=== PATIENT | female | born 1950 | race Caucasian/White ===

== ENCOUNTER 2020-08-11 10:23 | Outpatient (REF) | payer MEDICARE, SELFPAY ==
[2020-08-11 11:38] LABS: Hematocrit 38.4 % (37-47); Hemoglobin 12.1 g/dl (12.0-16.0); Mean Corpuscular HGB Conc 31.5 g/dl (31.0-35.0); Mean Corpuscular Hemoglobin 28.7 pg (27.0-33.0); Mean Platelet Volume 10.8 fL (9.4-12.3); Platelet Count 281 X10*3/uL (160-400); Red Blood Count 4.22 X10*6/uL (4.20-5.50); Red Cell Distribution Width 13.7 % (11.0-16.0); White Blood Count 6.5 X10*3/uL (4.8-10.8)
[2020-08-11 12:14] LABS: Alanine Aminotransferase 12 U/L (0-31); Albumin Level 4.8 g/dL (3.5-5.0); Alkaline Phosphatase 84 U/L (39-117); Anion Gap 16 (12-20); Aspartate Amino Transferase 22 U/L (5-31); Bilirubin Total 0.5 mg/dL (0.0-1.0); Blood Urea Nitrogen 14 mg/dL (9-16); Calcium 10.1 mg/dL (8.4-10.2); Carbon Dioxide 25 mmol/L (22-29); Chloride 105 mmol/L (96-108); Cholesterol 181 mg/dL; Estimated Glomerular Filt Rate > 60; Glucose Fasting 102 mg/dL (60-99); HDL Cholesterol 75 mg/dL; LDL Cholesterol Calculated 89 mg/dl; Potassium 4.5 mmol/L (3.3-5.1); Sodium 141 mmol/L (135-145); Total Protein 7.7 g/dL (6.5-8.0); Triglycerides 85 mg/dL
[2020-08-11 12:16] LABS: Thyroid Stimulating Hormone 0.75 uIU/mL (0.32-4.0)
[2020-08-11 12:21] LABS: Glucose Urine UA NEG (NEG); Leukocyte Esterase Urine TRACE (NEG); Nitrite Urine NEG (NEG); PH 5.5 (5.0-8.0); Urine Blood NEG (NEG); Urine Ketones NEG (NEG); Urine Protein NEG (NEG-TRACE)
[2020-08-11 12:26] LABS: Appearance Urine CLEAR; Color Urine YELLOW
[2020-08-11 12:44] LABS: Mucus Urine 2+ /LPF; RBC Urine 0-2 /HPF (0); Renal Epithelial Cells Urine 1+ /LPF; Squamous Epithelial Cell Urine 2+ /LPF; WBC Urine 0-2 /HPF (0-4)
== END 2020-08-11 10:24 | disposition home or self-care (01) ==
LOC: HO.HMGCLDS 10:23
PROVIDERS: PCP Internal Medicine; Visit Provider Internal Medicine
DX: E78.5 Hyperlipidemia, unspecified (principal); I10 Essential (primary) hypertension; M06.9 Rheumatoid arthritis, unspecified
CPT/HCPCS: 36415; 80053; 80061; 81001; 81003; 84443; 85027

== ENCOUNTER 2021-08-17 13:01 | Outpatient (REF) | payer MEDICARE, SELFPAY ==
[2021-08-17 14:03] LABS: Hematocrit 35.3 % (37.0-47.0); Hemoglobin 11.3 g/dl (12.0-16.0); Mean Corpuscular Hemoglobin 30.7 pg (27.0-33.0); Mean Corpuscular Volume 95.9 fL (80.0-98.0); Mean Platelet Volume 10.8 fL (9.4-12.3); Platelet Count 223 X10*3/uL (160-400); Red Blood Count 3.68 X10*6/uL (4.20-5.50); Red Cell Distribution Width 14.8 % (11.0-16.0); White Blood Count 4.6 X10*3/uL (4.8-10.8)
[2021-08-17 14:19] LABS: Alanine Aminotransferase 22 U/L (0-31); Albumin Level 4.6 g/dL (3.5-5.0); Alkaline Phosphatase 74 U/L (39-117); Anion Gap 14 (12-20); Aspartate Amino Transferase 24 U/L (5-31); Bilirubin Total 0.6 mg/dL (0.0-1.0); Blood Urea Nitrogen 16 mg/dL (9-16); Calcium 10.2 mg/dL (8.4-10.2); Carbon Dioxide 24 mmol/L (22-29); Chloride 107 mmol/L (96-108); Cholesterol 172 mg/dL; Estimated Glomerular Filt Rate > 60; Glucose Fasting 96 mg/dL (60-99); HDL Cholesterol 78 mg/dL; LDL Cholesterol Calculated 83 mg/dl; Potassium 4.2 mmol/L (3.3-5.1); Sodium 141 mmol/L (135-145); Total Protein 7.5 g/dL (6.5-8.0); Triglycerides 58 mg/dL
[2021-08-17 14:33] LABS: Vitamin D 25-OH Total 43.6 ng/mL (>30)
[2021-08-17 15:23] LABS: Free T4 (Free Thyroxine) 0.98 ng/dL (0.71-1.85)
== END 2021-08-17 13:02 | disposition home or self-care (01) ==
LOC: HO.HMGCLDS 13:01
PROVIDERS: Visit Provider Internal Medicine
DX: E55.9 Vitamin D deficiency, unspecified (principal); E78.5 Hyperlipidemia, unspecified; I10 Essential (primary) hypertension; M06.9 Rheumatoid arthritis, unspecified
CPT/HCPCS: 36415; 80053; 80061; 82306; 84439; 84443; 85027

== ENCOUNTER 2021-08-21 12:34 | Outpatient (REF) | payer MEDICARE, SELFPAY ==
[2021-08-21 14:23] LABS: Iron 112 mcg/dL (30-160); Percent Iron Saturation 36 % (15-50); Total Iron Binding Capacity 308 mcg/dL (228-428); Unsaturated Iron Binding 196 ug/dL
[2021-08-21 14:46] LABS: Vitamin D 25-OH Total 42.1 ng/mL (>30)
[2021-08-21 14:56] LABS: Folate > 20.0 ng/mL (> or = 4.0); Vitamin B12 368 pg/mL (200-900)
== END 2021-08-21 12:35 | disposition home or self-care (01) ==
LOC: HO.HMGCLDS 12:34
PROVIDERS: PCP Internal Medicine; Visit Provider Internal Medicine
DX: E55.9 Vitamin D deficiency, unspecified (principal); I10 Essential (primary) hypertension; D64.9 Anemia, unspecified
CPT/HCPCS: 36415; 82306; 82607; 82746; 83540

== ENCOUNTER 2022-10-05 08:20 | Outpatient (REF) | payer MEDICARE, SELFPAY ==
--- NOTE | ~2022-10-05 | US_ITS ---
EXAMINATION: US ABDOMEN COMPLETE CLINICAL INFORMATION: Right upper quadrant abdominal tenderness. COMPARISON: None available. TECHNIQUE: Real-time imaging of the abdominal viscera. FINDINGS: PANCREAS: Normal. ABDOMINAL AORTA: Mild atherosclerotic changes distal abdominal aorta. Mid abdominal aorta is unremarkable. The proximal abdominal aorta is not visualized. INFERIOR VENA CAVA: Visualized portions are normal. LIVER: The liver is normal in size. The liver contour is normal. There is diffuse hepatic increased echogenicity. No focal hepatic lesion. There is no intrahepatic biliary duct dilatation seen. GALLBLADDER: Normal. The gallbladder is physiologically distended without evidence of stones, sludge, polyps, wall thickening or pericholecystic fluid. COMMON BILE DUCT: Normal in caliber measuring 0.2 cm in diameter. RIGHT KIDNEY: There is an anechoic left parapelvic cyst measuring 2.0 x 1.4 x 1.6 cm. No hydronephrosis or renal calculi. The kidney measures 11.0 cm in maximum dimension. LEFT KIDNEY: There are anechoic parapelvic cysts with the largest upper pole cyst measuring 1.9 x 1.4 x 2.4 cm. No hydronephrosis or renal calculi. The kidney measures 10.5 cm in maximum dimension. SPLEEN: Normal. The spleen measures 8.9 cm in maximum dimension. FREE FLUID: None. US/US abdomen complete IMPRESSION: 1. Bilateral parapelvic renal cysts. No echogenic stones or hydronephrosis. 2. Rest of the abdominal ultrasound is unremarkable. 3. Diffuse hepatic echogenicity.
[2022-10-05 11:25] LABS: MANUAL DIFF FLAG NO
[2022-10-05 11:44] LABS: Basophils Percent Auto 0.5 % (0-2); Eosinophils Absolute Auto 0.2 X10*3/uL (0.0-0.4); Eosinophils Percent Auto 4.9 % (0-4); Hematocrit 36.3 % (37.0-47.0); Hemoglobin 11.4 g/dl (12.0-16.0); Imm Gran Abs Auto 0.02 X10*3/uL (0.00-0.03); Imm Gran Pct Auto 0.5 % (0.0-0.4); Lymphocytes Absolute Auto 0.5 X10*3/uL (1.2-4.9); Lymphocytes Percent Auto 14.7 % (20-40); Mean Corpuscular HGB Conc 31.4 g/dl (31.0-35.0); Mean Corpuscular Hemoglobin 30.8 pg (27.0-33.0); Mean Corpuscular Volume 98.1 fL (80.0-98.0); Mean Platelet Volume 11.2 fL (9.4-12.3); Monocytes Absolute Auto 0.5 X10*3/uL (0.1-1.2); Monocytes Percent Auto 14.4 % (2-11); Neutrophils Absolute Auto 2.4 x10*3/uL (2.0-8.3); Platelet Count 199 X10*3/uL (160-400); Red Cell Distribution Width 15.1 % (11.0-16.0); White Blood Count 3.7 X10*3/uL (4.8-10.8)
[2022-10-05 12:05] LABS: Alanine Aminotransferase 28 U/L (0-31); Albumin Level 4.6 g/dL (3.5-5.0); Alkaline Phosphatase 64 U/L (39-117); Anion Gap 13 (12-20); Aspartate Amino Transferase 26 U/L (5-31); Bilirubin Total 0.8 mg/dL (0.0-1.0); Blood Urea Nitrogen 17 mg/dL (9-16); Calcium 9.9 mg/dL (8.4-10.2); Carbon Dioxide 27 mmol/L (22-29); Chloride 108 mmol/L (96-108); Cholesterol 197 mg/dL; Estimated Glomerular Filt Rate > 60; Glucose Fasting 92 mg/dL (60-99); HDL Cholesterol 80 mg/dL; LDL Cholesterol Calculated 102 mg/dl; Sodium 144 mmol/L (135-145); Total Protein 7.1 g/dL (6.5-8.0); Triglycerides 77 mg/dL
[2022-10-05 12:26] LABS: Vitamin D 25-OH Total 45.9 ng/mL (>30)
== END 2022-10-05 08:21 | disposition home or self-care (01) ==
LOC: HO.HMGCX 08:20
PROVIDERS: PCP Internal Medicine; Visit Provider Internal Medicine
DX: R10.811 Right upper quadrant abdominal tenderness (principal); E78.5 Hyperlipidemia, unspecified; E55.9 Vitamin D deficiency, unspecified; I10 Essential (primary) hypertension
CPT/HCPCS: 36415; 76700; 80053; 80061; 82306; 85025

== ENCOUNTER 2023-04-18 14:12 | Outpatient (AMB) | payer MEDICARE, SELFPAY ==
[2023-04-18 14:13] VITALS: BP 140/80; PULSE 92; O2SAT 94; BMI 26.1
--- NOTE | 2023-04-18 14:13 | MHC.PC.OV ---
Vital Signs 04/18/23 14:13 Height 5 ft 1 in Weight 138 lb 6 oz BMI 26.1 BP 140/80 H Blood Pressure Location Rt brachial Position Sitting Pulse 92 Pulse Source Pulse Oximeter Pulse Oximetry (%) 94 Oxygen Delivery Method Room Air Intake Visit Reasons: 6 month follow up HTN Intake Note: pt is here for 6 month f/u htn [employer] (Ex ) Required: No Accompanied by: Self / Same As Patient Allergies No Known Allergies Allergy (Verified 04/18/23 14:14) Medication List - Last Reconciled 04/18/23 by Sandra Phillips MD amlodipine 5 mg PO DAILY calcium carbonate mg PO cholecalciferol (vitamin D3) 25 mcg PO DAILY folic acid 1 mg PO DAILY leflunomide 20 mg PO DAILY methotrexate sodium mg PO metoprolol succinate ER 37.5 mg (1.5 x 25 mg) PO DAILY pravastatin 10 mg PO DAILY tofacitinib 5 mg PO BID Tobacco use date assessed: 04/18/23 Fall risk assessment: No Falls in past year Last assessed Fall Risk: 04/18/23 Dental Screening Dental Screen Date: 04/18/23 Did you have a dental visit in the last 12 months?: Yes Did you have a dental problem in the last 6 months where you did not have access to dental care?: No Was dental information given to patient?: Patient has dentist HPI 6 month follow up HTN HPI Details Pt presents for f/u of HTN and hyperlipid, stable on meds. PFSH Medical History Anemia Cataract Vitamin D deficiency History of mammogram Hyperlipidemia Rheumatoid arthritis HTN (hypertension) Surgical History H/O colonoscopy Social History Housing: House Patient Tobacco Use Status: Never used Tobacco e-Cigarette/Vaping Use: Never Used Current occupational status: retired Cognitive needs: No Hearing needs: No Vision needs: Yes Questionnaire PHQ-9 Over the last 2 weeks, how often have you been bothered by any of the following problems? 1. Little interest or pleasure in doing things: not at all 2. Feeling down, depressed, or hopeless: not at all 3. Trouble falling or staying asleep, or sleeping too much: not at all 4. Feeling tired or having little energy: not at all 5. Poor appetite or overeating: not at all 6. Feeling bad about yourself - or that you are a failure or have let yourself or your family down: not at all 7. Trouble concentrating on things, such as reading the newspaper or watching television: not at all 8. Moving or speaking so slowly that other people could have noticed. Or the opposite - being so fidgety or restless that you have been moving around a lot more than usual: not at all 9. Thoughts that you would be better off or of hurting yourself in some way: not at all Total score: 0 Depression Screening Interpretation: Negative Depression Screening Done: Yes 84183 - PHQ-9 Billing: Yes Source: Developed by Drs. Zhang Morris, Savanna White, Pito Mo and colleagues, with an educational facundo from [employer]. Thrive Questionnaire Date Thrive assessed: 04/18/23 I am a: Patient What is your living situation today?: I have a steady place to live Within the past 12 months, did the food you bought not last and you didn't have the money to get more?: Never true Within the past 12 months, did you worry whether your food would run out before you got money to buy more?: Never true Do you have trouble paying for medicines?: No Do you have trouble getting transportation to medical appointments?: No Do you have trouble paying your heating and electricity bill?: No Do you have trouble taking care of your child, family member or friend?: No Do you have trouble with day-to-day activities such as bathing, preparing meals, shopping, managing finances, etc.?: No Are you currently unemployed and looking for a job?: No Are you interested in more education?: No Please select the resources that you would like help with: None Currently or been in a relationship where the following occur: no concerns reported RNOALD-7 AMB Questionnaire RONALD-7 Date RONALD - 7 assessed: 04/18/23 Source: Developed by Drs. Zhang Morris, Savanna White, Pito Mo and colleagues, with an educational facundo from [employer]. RONALD-7 Assessment Billing RONALD-7 Assessment Tool: pt declined-do not bill Review of Systems Const All systems reviewed & are unremarkable except as noted in HPI and below Reports no additional complaints Eyes Reports no additional complaints ENT Reports no additional complaints Card Reports no additional complaints Resp Reports no additional complaints GI Reports no additional complaints Reports no additional complaints Physical exam (Primary Care) Vital Signs: Last Vital Signs Pulse 92 04/18/23 14:13 BP 150/94 H 04/18/23 14:13 Pulse Ox 94 04/18/23 14:13 Oxygen Delivery Method Room Air 04/18/23 14:13 BMI result Body Mass Index 26.1 Tobacco/Smoking Status: Tobacco use Status Tobacco use date assessed 04/18/23 04/18/23 14:14 Patient Tobacco Use Status Never used Tobacco 04/18/23 14:14 e-Cigarette/Vaping Use Never Used 04/18/23 14:14 PHQ-9: PHQ-9 Score PHQ-9: Total score 0 04/18/23 14:28 Depression Screening Interpretation: Negative Thrive Assessment: Date of Thrive Assessment Date Thrive assessed 04/18/23 04/18/23 14:20 Currently or been in a relationship where the following occur: no concerns reported Const General: no acute distress Eyes General: appearance normal, both eyes and all related structures Resp Effort & Inspection: normal respiratory effort Auscultation: clear to auscultation bilaterally Cardio Rhythm: regular rhythm Heart sounds: S1 normal heart sound present and S2 normal heart sound present GI Inspection: Yes normal to inspection Palpation (GI): Soft to palpation Assessment and Plan Assessment & Plan (1) HTN (hypertension): Code(s): I10 - Essential (primary) hypertension Plan: increase Metoprolol to 37.5 and cont Amlodipine, f/u 2 month for BP (2) Rheumatoid arthritis: Comment: f/u with fuel cell 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
== END 2023-04-18 14:58 | disposition home or self-care (01) ==
LOC: HO.HMGC 14:12
PROVIDERS: PCP Internal Medicine; Visit Provider Internal Medicine
DX: I10 Essential (primary) hypertension (principal); M06.9 Rheumatoid arthritis, unspecified
CPT/HCPCS: 99213

== ENCOUNTER 2023-06-21 12:03 | Outpatient (AMB) | payer MEDICARE, SELFPAY ==
[2023-06-21 12:32] VITALS: BP 138/76; PULSE 77; O2SAT 96; BMI 25.9
--- NOTE | 2023-06-21 12:32 | A.OFFPC_ITS ---
Vital Signs 06/21/23 12:32 Height 5 ft 1 in Weight 137 lb BMI 25.9 BP 138/76 Blood Pressure Location Lt brachial Position Sitting Pulse 77 Pulse Source Pulse Oximeter Pulse Oximetry (%) 96 Oxygen Delivery Method Room Air Intake Visit Reasons: 2 month fu Intake Note: Pt is here today for 2 months follow up visit on BP. Pt needs a refill on Vitamin D. Allergies No Known Allergies Allergy (Verified 06/21/23 12:36) Medication List - Last Reconciled 06/21/23 by Sandra Phillips MD amlodipine 5 mg PO DAILY calcium carbonate mg PO cholecalciferol (vitamin D3) 25 mcg PO DAILY folic acid 1 mg PO DAILY leflunomide 20 mg PO DAILY methotrexate sodium mg PO metoprolol succinate ER 50 mg PO DAILY pravastatin 10 mg PO DAILY tofacitinib 5 mg PO BID Tobacco use date assessed: 06/21/23 Fall risk assessment: No Falls in past year Last assessed Fall Risk: 06/21/23 Dental Screening Dental Screen Date: 06/21/23 Did you have a dental visit in the last 12 months?: No Did you have a dental problem in the last 6 months where you did not have access to dental care?: No Was dental information given to patient?: Patient declined HPI 2 month fu HPI Details Pt presents for f/u HTN and hyperlipid, stable on meds. Patient follows up with medical collections for RA PFSH Medical History Anemia Cataract Vitamin D deficiency History of mammogram Hyperlipidemia Rheumatoid arthritis HTN (hypertension) Surgical History H/O colonoscopy Family History Mother Hypertension Heart attack Father No problems noted. Social History Housing: House Patient Tobacco Use Status: Never used Tobacco e-Cigarette/Vaping Use: Never Used Current occupational status: retired Cognitive needs: No Hearing needs: No Vision needs: Yes Questionnaire PHQ-9 Over the last 2 weeks, how often have you been bothered by any of the following problems? 1. Little interest or pleasure in doing things: not at all 2. Feeling down, depressed, or hopeless: not at all 3. Trouble falling or staying asleep, or sleeping too much: not at all 4. Feeling tired or having little energy: not at all 5. Poor appetite or overeating: not at all 6. Feeling bad about yourself - or that you are a failure or have let yourself or your family down: not at all 7. Trouble concentrating on things, such as reading the newspaper or watching television: several days 8. Moving or speaking so slowly that other people could have noticed. Or the opposite - being so fidgety or restless that you have been moving around a lot more than usual: not at all 9. Thoughts that you would be better off or of hurting yourself in some way: not at all Total score: 1 Depression Screening Interpretation: Negative Depression Screening Done: Yes 37690 - PHQ-9 Billing: Yes Source: Developed by Drs. Zhang Morris, Savanna White, Pito Mo and colleagues, with an educational facundo from [employer]. Thrive Questionnaire Date Thrive assessed: 06/21/23 I am a: Patient What is your living situation today?: I have a steady place to live Within the past 12 months, did the food you bought not last and you didn't have the money to get more?: Never true Within the past 12 months, did you worry whether your food would run out before you got money to buy more?: Never true Do you have trouble paying for medicines?: No Do you have trouble getting transportation to medical appointments?: No Do you have trouble paying your heating and electricity bill?: No Do you have trouble taking care of your child, family member or friend?: No Do you have trouble with day-to-day activities such as bathing, preparing meals, shopping, managing finances, etc.?: No Are you currently unemployed and looking for a job?: No Are you interested in more education?: No Please select the resources that you would like help with: None Currently or been in a relationship where the following occur: no concerns reported THRIVE Score: 0 AUDIT C Alcohol Use Questionnaire (AUDIT-C) 1. How often do you have a drink containing alcohol?: Never 3. How often do you have six or more drinks on one occasion?: Never Total Score: 0 RONALD-7 AMB Questionnaire RONALD-7 Date RONALD - 7 assessed: 06/21/23 Feeling nervous, anxious, or on edge: 0 = Not at all Not being able to stop or control worryin = Not at all Worrying too much about different things: 0 = Not at all Trouble relaxin = Not at all Being so restless that it is hard to sit still: 0 = Not at all Becoming easily annoyed or irritable: 0 = Not at all Feeling afraid as if something awful might happen: 0 = Not at all Total RONALD-7 score (0-4 normal; 5-9 mild; 10-14 moderate; 15-21 severe): 0 Source: Developed by Drs. Zhang Morris, Savanna White, Pito Mo and colleagues, with an educational facundo from [employer]. Review of Systems Const All systems reviewed & are unremarkable except as noted in HPI and below Reports no additional complaints Eyes Reports no additional complaints ENT Reports no additional complaints Card Reports no additional complaints Resp Reports no additional complaints GI Reports no additional complaints Physical exam (Primary Care) Vital Signs: Last Vital Signs Pulse 77 06/21/23 12:32 BP 138/76 06/21/23 12:32 Pulse Ox 96 06/21/23 12:32 Oxygen Delivery Method Room Air 06/21/23 12:32 BMI result Body Mass Index 25.9 Tobacco/Smoking Status: Tobacco use Status Tobacco use date assessed 06/21/23 06/21/23 12:41 Patient Tobacco Use Status Never used Tobacco 06/21/23 12:41 e-Cigarette/Vaping Use Never Used 06/21/23 12:32 PHQ-9: PHQ-9 Score PHQ-9: Total score 0 06/21/23 12:47 Depression Screening Interpretation: Negative Thrive Assessment: Date of Thrive Assessment Date Thrive assessed 06/21/23 06/21/23 12:47 Currently or been in a relationship where the following occur: no concerns reported Const General: no acute distress HENMT Head: Yes normal to inspection Ears: hearing grossly normal bilaterally Face and sinus: Yes normal facial exam Mouth: Normal oral and palatal mucosa present Teeth and gingiva: dentition normal Eyes General: appearance normal, both eyes and all related structures Neck Neck: Yes no lymphadenopathy and Yes supple Resp Effort & Inspection: normal respiratory effort Auscultation: clear to auscultation bilaterally Cardio Rhythm: regular rhythm Heart sounds: S1 normal heart sound present and S2 normal heart sound present GI Inspection: Yes normal to inspection Palpation (GI): Soft to palpation Percussion: Yes normal to percussion Auscultation: normal bowel sounds Assessment and Plan Assessment & Plan (1) Hyperlipidemia: Code(s): E78.5 - Hyperlipidemia, unspecified Plan: cont statin (2) Vitamin D deficiency: Code(s): E55.9 - Vitamin D deficiency, unspecified Plan: cont vit D (3) HTN (hypertension): Code(s): I10 - Essential (primary) hypertension Plan: Continue amlodipine and increase metoprolol to 50 mg a day. Physical in October with a fasting labs before (4) Anemia: Comment: Normal iron and B12 Code(s): D64.9 - Anemia, unspecified Plan: Monitor CBC check iron and vitamin B12 (5) Rheumatoid arthritis: Comment: f/u with medical collections Dr. Howell Code(s): M06.9 - Rheumatoid arthritis, unspecified Plan: Follow-up with rheumatology Orders: Orders Complete Blood Count no Diff 4 Months D64.9 - Anemia, unspecified, E55.9 - Vitamin D deficiency, unspecified, E78.5 - Hyperlipidemia, unspecified, I10 - Essential (primary) hypertension, M06.9 - Rheumatoid arthritis, unspecified TSH reflex Free T4 4 Months D64.9 - Anemia, unspecified, E55.9 - Vitamin D deficiency, unspecified, E78.5 - Hyperlipidemia, unspecified, I10 - Essential (primary) hypertension, M06.9 - Rheumatoid arthritis, unspecified UA w Microscopic 4 Months D64.9 - Anemia, unspecified, E55.9 - Vitamin D deficiency, unspecified, E78.5 - Hyperlipidemia, unspecified, I10 - Essential (primary) hypertension, M06.9 - Rheumatoid arthritis, unspecified Vitamin B12 and Folate 4 Months D64.9 - Anemia, unspecified Comprehensive [place]. Panel Fast 4 Months D64.9 - Anemia, unspecified, E55.9 - Vitamin D deficiency, unspecified, E78.5 - Hyperlipidemia, unspecified, I10 - Essential (primary) hypertension, M06.9 - Rheumatoid arthritis, unspecified Lipid Panel 4 Months D64.9 - Anemia, unspecified, E55.9 - Vitamin D deficiency, unspecified, E78.5 - Hyperlipidemia, unspecified, I10 - Essential (primary) hypertension, M06.9 - Rheumatoid arthritis, unspecified IRON PROFILE 4 Months D64.9 - Anemia, unspecified Medications: New metoprolol succinate ER 50 mg PO DAILY 90 tabs 1RF Discontinued metoprolol succinate ER Discontinued Reason: Doctor's Order 37.5 mg (1.5 x 25 mg) PO DAILY 135 tabs 3RF Coding Level of Care Code Est Pt Level 4 (55502) Diagnoses Hyperlipidemia E78.5 Vitamin D deficiency E55.9 HTN (hypertension) I10 Anemia D64.9 Rheumatoid arthritis M06.9
== END 2023-06-21 13:15 | disposition home or self-care (01) ==
PROVIDERS: PCP Internal Medicine; Visit Provider Internal Medicine
DX: E78.5 Hyperlipidemia, unspecified (principal); M06.9 Rheumatoid arthritis, unspecified; E55.9 Vitamin D deficiency, unspecified; I10 Essential (primary) hypertension; D64.9 Anemia, unspecified
CPT/HCPCS: 99214

== ENCOUNTER 2023-10-09 10:08 | Outpatient (REF) | payer MEDICARE, SELFPAY ==
[2023-10-09 13:33] LABS: Hematocrit 35.3 % (37.0-47.0); Hemoglobin 11.3 g/dl (12.0-16.0); Mean Corpuscular Hemoglobin 31.9 pg (27.0-33.0); Mean Corpuscular Volume 99.7 fL (80.0-98.0); Mean Platelet Volume 11.6 fL (9.4-12.3); Platelet Count 202 X10*3/uL (160-400); Red Blood Count 3.54 X10*6/uL (4.20-5.50); Red Cell Distribution Width 14.6 % (11.0-16.0); White Blood Count 5.1 X10*3/uL (4.8-10.8)
[2023-10-09 13:35] LABS: Appearance Urine Turbid; Color Urine Yellow; Glucose Urine UA Negative (Negative); Leukocyte Esterase Urine Moderate (2+) (Negative); Nitrite Urine Negative (Negative); PH 5.5 (5.0-9.0); UMIC TRIGGER UA YES; Urine Blood Negative (Negative); Urine Ketones Trace mg/dL (Negative); Urine Protein Negative (Neg-Trace)
[2023-10-09 13:43] LABS: Bacteria Urine None Seen (None Seen); Hyaline Casts Urine 0-2 /LPF (0-2); RBC Urine 0-2 /HPF (0-2); WBC Urine 21-50 /HPF (0-5)
[2023-10-09 13:57] LABS: Alanine Aminotransferase 23 U/L (0-31); Albumin Level 4.5 g/dL (3.5-5.0); Alkaline Phosphatase 63 U/L (39-117); Anion Gap 14 (12-20); Aspartate Amino Transferase 26 U/L (5-31); Bilirubin Total 0.8 mg/dL (0.0-1.0); Blood Urea Nitrogen 14 mg/dL (9-16); Calcium 9.9 mg/dL (8.4-10.2); Carbon Dioxide 25 mmol/L (22-29); Chloride 107 mmol/L (96-108); Cholesterol 172 mg/dL (<200); Estimated Glomerular Filt Rate > 60; Glucose Fasting 94 mg/dL (60-99); HDL Cholesterol 79 mg/dL (>40); Iron 125 mcg/dL (30-160); LDL Cholesterol Calculated 80 mg/dL (<100); Percent Iron Saturation 46 % (15-50); Potassium 4.1 mmol/L (3.3-5.1); Sodium 142 mmol/L (135-145); Total Iron Binding Capacity 270 mcg/dL (228-428); Total Protein 7.4 g/dL (6.5-8.0); Triglycerides 69 mg/dL (<150); Unsaturated Iron Binding 145 ug/dL
[2023-10-09 13:59] LABS: TSH reflex Free T4 0.37 uIU/mL (0.32-4.0)
[2023-10-09 14:09] LABS: Folate 11.2 ng/mL (> or = 4.0); Vitamin B12 491 pg/mL (200-900)
== END 2023-10-09 10:09 | disposition home or self-care (01) ==
LOC: HO.HMGCLDS 10:08
PROVIDERS: PCP Internal Medicine; Visit Provider Internal Medicine
DX: E78.5 Hyperlipidemia, unspecified (principal); E55.9 Vitamin D deficiency, unspecified; I10 Essential (primary) hypertension; D64.9 Anemia, unspecified; M06.9 Rheumatoid arthritis, unspecified
CPT/HCPCS: 36415; 80053; 80061; 81001; 82607; 82746; 83540; 84443; 85027

== ENCOUNTER 2023-10-18 12:46 | Outpatient (AMB) | payer MEDICARE, SELFPAY ==
--- NOTE | 2023-10-18 12:46 | A.OFFPC_ITS ---
Vital Signs 10/18/23 12:47 Height 5 ft 1 in Weight 135 lb BMI 25.5 BP 136/74 Blood Pressure Location Rt brachial Position Sitting Pulse 92 Pulse Source Pulse Oximeter Pulse Oximetry (%) 96 Oxygen Delivery Method Room Air Intake Visit Reasons: Follow up visit Intake Note: Pt is here today for a follow up visit on labs. Pt needs a refill on vitamin D and order for mammo. Allergies No Known Allergies Allergy (Verified 10/18/23 12:49) Medication List - Last Reconciled 10/18/23 by Sandra Phillips MD amlodipine 5 mg PO DAILY calcium carbonate mg PO cholecalciferol (vitamin D3) 25 mcg PO DAILY folic acid 1 mg PO DAILY leflunomide 20 mg PO DAILY methotrexate sodium mg PO metoprolol succinate ER 50 mg PO DAILY pravastatin 10 mg PO DAILY tofacitinib 5 mg PO BID Tobacco use date assessed: 06/21/23 Fall risk assessment: No Falls in past year Last assessed Fall Risk: 10/18/23 Dental Screening Dental Screen Date: 10/18/23 Did you have a dental visit in the last 12 months?: Yes Did you have a dental problem in the last 6 months where you did not have access to dental care?: No Was dental information given to patient?: Patient has dentist HPI Follow up visit HPI Details Pt presents for f/u HTN, hyperlipid, RA, stable on meds. Patient complains of mid back skin cyst becoming more irritated and painful and would like to see a surgeon to have it removed PFSH Medical History (Updated 10/18/23 @ 14:10 by Sandra Phillips MD) Anemia Cataract Vitamin D deficiency History of mammogram Hyperlipidemia Rheumatoid arthritis HTN (hypertension) Surgical History H/O colonoscopy Family History Mother Hypertension Heart attack Father No problems noted. Social History Housing: House Patient Tobacco Use Status: Never used Tobacco e-Cigarette/Vaping Use: Never Used service: No Current occupational status: retired Cognitive needs: No Hearing needs: No Vision needs: Yes Questionnaire Thrive Questionnaire Date Thrive assessed: 06/21/23 AUDIT C Alcohol Use Questionnaire (AUDIT-C) 1. How often do you have a drink containing alcohol?: Never 3. How often do you have six or more drinks on one occasion?: Never Total Score: 0 RONALD-7 AMB Questionnaire RONALD-7 Date RONALD - 7 assessed: 06/21/23 Source: Developed by Drs. Zhang Morris, Savanna White, Pito Mo and colleagues, with an educational facundo from [employer]. Review of Systems Const All systems reviewed & are unremarkable except as noted in HPI and below Eyes Reports no additional complaints ENT Reports no additional complaints Card Reports no additional complaints Resp Reports no additional complaints GI Reports no additional complaints Reports no additional complaints Physical exam (Primary Care) Vital Signs: Last Vital Signs Pulse 92 10/18/23 12:47 BP 136/74 10/18/23 12:47 Pulse Ox 96 10/18/23 12:47 Oxygen Delivery Method Room Air 10/18/23 12:47 BMI result Body Mass Index 25.5 Tobacco/Smoking Status: Tobacco use Status Tobacco use date assessed 06/21/23 10/18/23 12:50 Patient Tobacco Use Status Never used Tobacco 10/18/23 12:50 e-Cigarette/Vaping Use Never Used 10/18/23 12:50 Thrive Assessment: Date of Thrive Assessment Date Thrive assessed 06/21/23 10/18/23 12:50 Const General: no acute distress HENMT Ears: hearing grossly normal bilaterally Eyes General: appearance normal, both eyes and all related structures Neck Neck: Yes supple Resp Effort & Inspection: normal respiratory effort Auscultation: clear to auscultation bilaterally Cardio Rhythm: regular rhythm Heart sounds: S1 normal heart sound present and S2 normal heart sound present GI Inspection: Yes normal to inspection Palpation (GI): Soft to palpation Percussion: Yes normal to percussion Auscultation: normal bowel sounds Skin Other: Mid back 5 cm in diameter sebaceous cyst, no erythema warmth or drainage Assessment and Plan Assessment & Plan (1) Sebaceous cyst: Code(s): L72.3 - Sebaceous cyst Plan: Referred to a surgeon (2) Rheumatoid arthritis: Comment: f/u with test operator Dr. Howell Code(s): M06.9 - Rheumatoid arthritis, unspecified Plan: Follow-up with rheumatology (3) Hyperlipidemia: Code(s): E78.5 - Hyperlipidemia, unspecified Plan: Continue pravastatin (4) HTN (hypertension): Code(s): I10 - Essential (primary) hypertension Plan: Continue amlodipine and metoprolol , follow-up in 6 months with a fasting labs before Orders: Orders Comprehensive [place]. Panel Fast 6 Months D64.9 - Anemia, unspecified, E78.5 - Hyperlipidemia, unspecified, I10 - Essential (primary) hypertension Complete Blood Count Auto Diff 6 Months D64.9 - Anemia, unspecified, E78.5 - Hyperlipidemia, unspecified, I10 - Essential (primary) hypertension MM screening mammo BI Today Z12.31 - Encounter for screening mammogram for malignant neoplasm of breast Lipid Panel 6 Months D64.9 - Anemia, unspecified, E78.5 - Hyperlipidemia, unspecified, I10 - Essential (primary) hypertension Referrals General Surgery Referral L72.3 - Sebaceous cyst Medications: New cholecalciferol (vitamin D3) 25 mcg PO DAILY 90 caps 3RF Coding Level of Care Code Est Pt Level 4 (84300) Diagnoses Sebaceous cyst L72.3 Rheumatoid arthritis M06.9 Hyperlipidemia E78.5 HTN (hypertension) I10
[2023-10-18 12:47] VITALS: BP 136/74; PULSE 92; O2SAT 96; BMI 25.5
== END 2023-10-18 13:11 | disposition home or self-care (01) ==
LOC: HO.HMGC 12:46
PROVIDERS: PCP Internal Medicine; Visit Provider Internal Medicine
DX: L72.3 Sebaceous cyst (principal); M06.9 Rheumatoid arthritis, unspecified; E78.5 Hyperlipidemia, unspecified; I10 Essential (primary) hypertension
CPT/HCPCS: 99214

== ENCOUNTER 2023-11-11 11:56 | Outpatient (AMB) | payer MEDICARE, SELFPAY ==
--- NOTE | 2023-11-11 12:47 | A.OFFVIS_ITS ---
Vital Signs 11/11/23 12:48 Height 5 ft 1 in Weight 138 lb BMI 26.1 BP 180/87 H Blood Pressure Location Rt brachial Position Sitting Pulse 83 Intake Visit Reasons: Sebaceous cyst~ Mid back Intake Note: Patient referred by Dr. Phillips for cyst on mid back. Present for yrs. Patient c/o: enlarging. Denies bleeding, oozing, itch. Construction Framer Required: No Accompanied by: friend Codey Allergies No Known Allergies Allergy (Verified 11/11/23 12:55) HPI Comments Details: Patient presents with a friend for evaluation of a lower back mass. She has had this several years time. His increasing size and become more symptomatic. Like to have removed. She has no such lesions elsewhere. Chart was reviewed and patient evaluated [facility] Medical History (Updated 10/18/23 @ 14:10 by Sandra Phillips MD) Anemia Cataract Vitamin D deficiency History of mammogram Hyperlipidemia Rheumatoid arthritis HTN (hypertension) Surgical History (Updated 11/11/23 @ 13:31 by Sandip Dodge MD) H/O colonoscopy Family History Mother Hypertension Heart attack Father No problems noted. Social History Housing: House Patient Tobacco Use Status: Never used Tobacco e-Cigarette/Vaping Use: Never Used service: No Current occupational status: retired Cognitive needs: No Hearing needs: No Vision needs: Yes Physical Exam Vital Signs: Last Vital Signs Pulse 83 11/11/23 12:48 BP 180/87 H 11/11/23 12:48 BMI result Body Mass Index 26.1 Chest Other: Chest breath sounds bilaterally, HS 1 in 2 GI Other: Abdomen mildly corpulent, soft, benign Skin Other: Patient has a large lower mid back mass consistent with a sebaceous cyst measuring approximately 5 x 4 cm Assessment & Plan Assessment & Plan (1) Sebaceous cyst: Code(s): L72.3 - Sebaceous cyst Category: Surgical Plan Is the size of this process, and to ensure its excision in entirety, I recommended we do excision of lower back sebaceous cyst in an ambulatory surgical setting. Risks, benefits, alternatives of procedure reviewed the patient and her friend and included but not limited to bleeding, infection, recurrence, numbness, pain, scarring, seroma formation, wound dehiscence and the patient wishes to proceed. All questions answered. Arrangements were made for this. Coding Level of Care Code New Pt Level 5 (15720) Diagnoses Sebaceous cyst L72.3
[2023-11-11 12:48] VITALS: BP 180/87; PULSE 83; BMI 26.1
== END 2023-11-11 13:24 | disposition home or self-care (01) ==
PROVIDERS: PCP Internal Medicine; Referring Provider Internal Medicine; Visit Provider Surgery
DX: L72.3 Sebaceous cyst (principal)
CPT/HCPCS: 99204

== ENCOUNTER → 2023-11-11 11:56 | Outpatient (BNVA) | payer MEDICARE, SELFPAY | PROVIDERS: PCP Internal Medicine; Referring Provider Internal Medicine; Visit Provider Surgery | DX: L72.3 Sebaceous cyst (principal) | CPT/HCPCS: 99202 ==

== ENCOUNTER 2023-12-13 09:37 | Day surgery (SDC) | payer MEDICARE, SELFPAY ==
--- NOTE | 2023-12-12 13:23 | MHC.SHP ---
Pre-Procedural Eval Section A - 24 Hr Update-Section A only Date of Service: 12/12/23 The patient is an INPATIENT: No Changes since office visit: No Cold of Flu in the past 2 weeks, No New Medical Problems, No Changes in Medication and No Patient answered all questions The patient has been examined within 24 hours of the surgical procedure. The History & Physical has been completed within 30 days and I have reviewed it.: Yes Section B - Complete if H&P > 30 days Chief Complaint: Sebaceous cyst Allergies: Allergies Allergy/AdvReac Type Severity Reaction Status Date / Time No Known Allergies Allergy Verified 11/11/23 12:55 Review of Systems Sugical H&P ROS: Negative: Constitution, Cardiovascular, Respiratory, Neurological, Psychiatric, Hem-Onc, Allergic/Immunologic, Gastrointestinal, Genitourinary, Musculoskeletal, Integumentary, Endocrine and Eyes/Ears/Nose/Throat Exam Surgical H&P Exam: Normal: HEENT, Normal: Heart, Normal: Lungs, Normal: Extremities, Normal: Abdomen, Normal: Skin and Normal: Neurological Plan I have reviewed the history and physical and performed a pertinent physical examination on my patient. No changes have occurred unless specified. Time Spent With Patient Time: Total time managing care of this patient today ____ minutes.
[2023-12-13] VITALS (7 sets, daily range): BP systolic 141–176; BP diastolic 76–82; PULSE 58–92; RESP 15–16; TEMP 36.2–36.9; O2SAT 96–100
[2023-12-13] MEDS: Lactated Ringers 1,000 ML 100 ML IVCONT (10:33)
--- NOTE | 2023-12-13 10:55 | HO.ANESPROP2 ---
Documented by User: Tabatha Osei NP 12/11/23 14:37 HPI - Anesthesia Eval Consult details Narrative: 73yo F for Wide Local Excision Lower Mid-Back Large Mass RA: methotrexate and Xeljanz PMFSH Active Problems Active Problems: All Active Problems Sebaceous cyst (Acute) RUQ abdominal tenderness (Acute) Anemia (Acute) Cataract (Acute) Rheumatoid arthritis (Acute) Hyperlipidemia (Acute) Vitamin D deficiency (Acute) HTN (hypertension) (Acute) Past Medical History Medical History (Updated 12/13/23 @ 10:04 by Gisell Rashid RN) Bilateral cataracts Anemia Cataract Vitamin D deficiency History of mammogram Hyperlipidemia Rheumatoid arthritis HTN (hypertension) Family History Family History Mother Hypertension Heart attack Father No problems noted. Surgical History Surgical History (Updated 11/11/23 @ 13:31 by Sandip Dodge MD) H/O colonoscopy Social History Social History Housing: House Patient Tobacco Use Status: Never used Tobacco e-Cigarette/Vaping Use: Never Used Use of substances other than those prescribed or required for medical reasons: No Are you DNR?: No Advance Directives: No Advance Directives Information Provided: Yes service: No Current occupational status: retired Cognitive needs: No Hearing needs: No Vision needs: Yes Meds Allergies Allergy/AdvReac Type Severity Reaction Status Date / Time No Known Allergies Allergy Verified 11/11/23 12:55 Home Medications ?Medication ?Instructions ?Recorded ?Confirmed ?Last Taken ?Type calcium carbonate mg PO 08/18/20 11/11/23 Unknown History leflunomide 20 mg tablet 20 mg PO DAILY 08/18/20 11/11/23 Unknown History tofacitinib 5 mg tablet 5 mg PO BID 08/18/20 11/11/23 Unknown History folic acid 1 mg tablet 1 mg PO DAILY 02/23/21 11/11/23 Unknown History methotrexate sodium 2.5 mg tablet mg PO 02/23/21 11/11/23 Unknown History Exam Pertinent Lab Results Pertinent Lab Results: Laboratory Tests 10/09/23 10:50 WBC 5.1 Hgb 11.3 L Hct 35.3 L Plt Count 202 Sodium 142 Potassium 4.1 Chloride 107 Carbon Dioxide 25 BUN 14 Creatinine 0.74 Assessment and Plan Assessment Anesthesia Assessment: Chart Reviewed Documented by User: Miranda Ryan DO 12/13/23 11:26 [facility] Past Medical History Medical History (Updated 12/13/23 @ 10:04 by Gisell Rashid RN) Bilateral cataracts Anemia Cataract Vitamin D deficiency History of mammogram Hyperlipidemia Rheumatoid arthritis HTN (hypertension) Family History Family History Mother Hypertension Heart attack Father No problems noted. Family history of problems with anesthesia: No Surgical History Surgical History (Updated 11/11/23 @ 13:31 by Sandip Dodge MD) H/O colonoscopy History of Problems with Anesthesia: No Social History Social History Housing: House Patient Tobacco Use Status: Never used Tobacco e-Cigarette/Vaping Use: Never Used Use of substances other than those prescribed or required for medical reasons: No Are you DNR?: No Advance Directives: No Advance Directives Information Provided: Yes service: No Current occupational status: retired Cognitive needs: No Hearing needs: No Vision needs: Yes Meds Allergies Allergy/AdvReac Type Severity Reaction Status Date / Time No Known Allergies Allergy Verified 11/11/23 12:55 Home Medications ?Medication ?Instructions ?Recorded ?Confirmed ?Last Taken ?Type calcium carbonate mg PO 08/18/20 11/11/23 Unknown History leflunomide 20 mg tablet 20 mg PO DAILY 08/18/20 11/11/23 Unknown History tofacitinib 5 mg tablet 5 mg PO BID 08/18/20 11/11/23 Unknown History folic acid 1 mg tablet 1 mg PO DAILY 02/23/21 11/11/23 Unknown History methotrexate sodium 2.5 mg tablet mg PO 02/23/21 11/11/23 Unknown History Exam Exam Date and Time: December 13, 2023 1109 Height,Weight and Vital Signs: Height 4 ft 11.84 in Weight 61.745 kg Vital Signs Temperature 98.4 F 12/13/23 10:14 Pulse Rate 92 12/13/23 10:14 Respiratory Rate 16 12/13/23 10:14 Blood Pressure 176/79 H 12/13/23 10:14 Pulse Oximetry 96 12/13/23 10:14 Oxygen Delivery Method Room Air 12/13/23 10:14 Temperature 98.4 F 12/13/23 10:14 Pulse Rate 92 12/13/23 10:14 Respiratory Rate 16 12/13/23 10:14 Blood Pressure 176/79 H 12/13/23 10:14 Pulse Oximetry 96 12/13/23 10:14 Oxygen Delivery Method Room Air 12/13/23 10:14 Airway Mallampati Class: II TM Dist: >3cm Neck ROM: Full Denture: Upper and Lower Heart: S1S2 Lungs: CTAB Assessment and Plan Assessment Anesthesia Assessment: Anesthesia Plan Discussed and Chart Reviewed Final Anesthetic Review Family History of Problems with Anesthesia: No History of Problems with Anesthesia: No NPO: Yes ASA Class: II Final Preanesthetic Review: No Changes in Pt Med Stat, Meds/Allgs Chart Reviewed, Consent Obtained/Reviewed (Nigerian stencil cutter at bedside for translation) and Anes Risks/Benef Reviewed Patient Risk: Low Procedure Risk: Low Anesthetic Plan Anesthetic Plan: GA and Agree w/ Assess. and Plan Disposition: Standard PACU
--- NOTE | 2023-12-13 11:33 | W.PM.OPN ---
Operative Note Operative Note Date of Service: 12/13/23 Narrative: Preoperative diagnosis: [] <del>Large</del> <del>symptomatic</del> <del>mid</del> <del>back</del> <del>sebaceous</del> <del>cyst</del> Postop diagnosis: [] The same Procedure [] wide local excision sebaceous cyst mid back Surgeon: [] Dar Hoist Operator: [] Pam Type of Anesthesia: [] MAC Indication for surgery: [] Final specimen size roughly 6 x 3 cm Findings: [] Patient brought to the operating room, placed on operative table supine position, after an adequate level of MAC anesthesia was induced, patient was placed in the right lateral decubitus position. Mid back was prepped and draped in usual sterile fashion. Using a transverse by elliptical incision with final dimensions as described above, this carried down through skin, subcutaneous tissue, were superior and inferior skin flaps developed an excision of a large sebaceous cyst with its entire sac was uneventfully performed. Specimens sent to pathology. Wound was irrigated, secured hemostasis, and closed using interrupted inverted dermal 3-0 Vicryl sutures followed by Steri-Strips sterile dressings. Wound was infiltrated at the beginning at the end of the case with 0.5% Marcaine/1% lidocaine. Sponge, needle, and instrument counts reported correct. Patient tolerated the procedure well and emerged from anesthesia in stable condition. EBL minimal
== END 2023-12-13 12:45 | disposition home or self-care (01) ==
PROVIDERS: PCP Internal Medicine; Visit Provider Surgery
PROC: (CPT 11406; principal; 2023-12-13 11:30)
DX: L72.3 Sebaceous cyst (principal); I10 Essential (primary) hypertension; M06.9 Rheumatoid arthritis, unspecified; D64.9 Anemia, unspecified; E55.9 Vitamin D deficiency, unspecified; E78.5 Hyperlipidemia, unspecified; Z79.899 Other long term (current) drug therapy
CPT/HCPCS: 11406; 88304; J0690; J1100; J2405; J2704; J2795; J3010

== ENCOUNTER → 2023-12-13 09:37 | Outpatient (BNV) | payer MEDICARE, SELFPAY | PROVIDERS: PCP Internal Medicine; Visit Provider Surgery | DX: L72.0 Epidermal cyst (principal) | CPT/HCPCS: 11406 ==

== ENCOUNTER 2023-12-24 09:05 | Outpatient (AMB) | payer MEDICARE, SELFPAY ==
--- NOTE | 2023-12-24 09:10 | MHC.OFFVIS ---
Intake Visit Reasons: S/P WLE lower mid-back mass Intake Note: Patient here s/p WLE cyst on lower mid back. Reports incision healing well. Patient c/o: no concerns. WLE: 12-13-2023. Dining Room Tables Set Up Attendant Required: No Accompanied by: friend Romero Allergies No Known Allergies Allergy (Verified 12/24/23 09:14) HPI Comments Details: Patient presents with her significant other. She has no wound issues or complaints. Pathology is benign. [facility] Medical History Bilateral cataracts Anemia Cataract Vitamin D deficiency History of mammogram Hyperlipidemia Rheumatoid arthritis HTN (hypertension) Surgical History Hx of surgical procedure (12/13/23) H/O colonoscopy Family History Mother Hypertension Heart attack Father No problems noted. Social History Housing: House Patient Tobacco Use Status: Never used Tobacco e-Cigarette/Vaping Use: Never Used service: No Current occupational status: retired Cognitive needs: No Hearing needs: No Vision needs: Yes Physical Exam Back/Spine/Pelvis Other: Lower back wound healing very well. Assessment & Plan Assessment & Plan (1) Postop check: Code(s): Z09 - Encounter for follow-up examination after completed treatment for conditions other than malignant neoplasm Category: Surgical Plan Patient has been given local instructions including avoiding strenuous activities and will otherwise follow-up p.r.n.. All questions answered. Coding Level of Care Code Global (91146) Diagnoses Postop check Z09
== END 2023-12-24 09:21 | disposition home or self-care (01) ==
PROVIDERS: PCP Internal Medicine; Visit Provider Surgery
DX: Z09 Encounter for follow-up examination after completed treatment for conditions other than malignant neoplasm (principal)
CPT/HCPCS: 99024

== ENCOUNTER → 2023-12-24 09:05 | Outpatient (BNVA) | payer MEDICARE, SELFPAY | PROVIDERS: PCP Internal Medicine; Visit Provider Surgery | DX: Z09 Encounter for follow-up examination after completed treatment for conditions other than malignant neoplasm (principal) | CPT/HCPCS: 99212 ==

== ENCOUNTER 2024-02-14 12:45 | Outpatient (REF) | payer MEDICARE, SELFPAY ==
--- NOTE | ~2024-02-14 | MM_ITS ---
EXAMINATION: MM SCREENING DIGITAL BREAST TOMOSYNTHESIS, BILATERAL CLINICAL INFORMATION: Screening. Asymptomatic. COMPARISON: Mammography: Comparison is made with available priors TECHNIQUE: Digital breast mammography with tomosynthesis is performed in both the craniocaudal and mediolateral oblique views along with computer-aided detection (CAD). FINDINGS: There are scattered areas of fibroglandular density (ACR BI-RADS breast composition Category b). Left: There are no significant masses, abnormal calcifications, or other abnormalities. Right: Focal asymmetry upper outer quadrant posterior depth slightly increased from prior. No suspicious calcifications or other abnormal findings. MM/MM tomosynthesis screening BI IMPRESSION: Additional imaging is recommended ASSESSMENT: BI-RADS BI-RADS 0 - Incomplete: Needs additional Imaging. RECOMMENDATION: 1. Additional views of the right breast 2. Targeted ultrasound if warranted after review of the additional views. 3. Radiology department staff will contact the patient for additional imaging. Additional Imaging required This examination should not preclude the clinical evaluation of a suspicious palpable abnormality. This patient's information was entered into a reminder system with a target due date for their next mammogram. Electronically signed by: Asia Phillips DO 03/09/2024 05:26 PM EDT
== END 2024-02-14 12:46 | disposition home or self-care (01) ==
LOC: HO.MAMMO 12:45
PROVIDERS: PCP Internal Medicine; Visit Provider Internal Medicine
DX: Z12.31 Encounter for screening mammogram for malignant neoplasm of breast (principal)
CPT/HCPCS: 77063; 77067

== ENCOUNTER → 2024-02-14 13:30 | Outpatient (BNV) | payer MEDICARE, SELFPAY | PROVIDERS: PCP Internal Medicine; Visit Provider Internal Medicine | DX: Z12.31 Encounter for screening mammogram for malignant neoplasm of breast (principal) | CPT/HCPCS: 77063; 77067 ==

== ENCOUNTER 2024-04-03 11:16 | Outpatient (REF) | payer MEDICARE, SELFPAY ==
[2024-04-03 13:27] LABS: MANUAL DIFF FLAG NO
[2024-04-03 13:39] LABS: Basophils Percent Auto 0.4 % (0-2); Eosinophils Absolute Auto 0.2 X10*3/uL (0.0-0.4); Eosinophils Percent Auto 2.9 % (0-4); Hematocrit 35.2 % (37.0-47.0); Hemoglobin 11.3 g/dl (12.0-16.0); Imm Gran Abs Auto 0.04 X10*3/uL (0.00-0.03); Imm Gran Pct Auto 0.7 % (0.0-0.4); Lymphocytes Absolute Auto 0.7 X10*3/uL (1.2-4.9); Mean Corpuscular HGB Conc 32.1 g/dl (31.0-35.0); Mean Corpuscular Hemoglobin 30.1 pg (27.0-33.0); Mean Corpuscular Volume 93.6 fL (80.0-98.0); Mean Platelet Volume 11.1 fL (9.4-12.3); Monocytes Absolute Auto 0.7 X10*3/uL (0.1-1.2); Monocytes Percent Auto 11.9 % (2-11); Neutrophils Absolute Auto 3.9 x10*3/uL (2.0-8.3); Neutrophils Percent Auto 71.1 % (45-73); Platelet Count 246 X10*3/uL (160-400); Red Blood Count 3.76 X10*6/uL (4.20-5.50); Red Cell Distribution Width 14.3 % (11.0-16.0); White Blood Count 5.5 X10*3/uL (4.8-10.8)
[2024-04-03 14:10] LABS: Alanine Aminotransferase 22 U/L (0-31); Albumin Level 4.3 g/dL (3.5-5.0); Alkaline Phosphatase 67 U/L (39-117); Anion Gap 16 (12-20); Aspartate Amino Transferase 35 U/L (5-31); Bilirubin Total 0.7 mg/dL (0.0-1.0); Blood Urea Nitrogen 17 mg/dL (9-16); Carbon Dioxide 23 mmol/L (22-29); Chloride 109 mmol/L (96-108); Cholesterol 178 mg/dL (<200); Estimated Glomerular Filt Rate > 60; Glucose Fasting 94 mg/dL (60-99); HDL Cholesterol 68 mg/dL (>40); LDL Cholesterol Calculated 93 mg/dL (<100); Potassium 4.2 mmol/L (3.3-5.1); Sodium 144 mmol/L (135-145); Total Protein 7.5 g/dL (6.5-8.0); Triglycerides 87 mg/dL (<150)
== END 2024-04-03 11:17 | disposition home or self-care (01) ==
LOC: HO.HMGCLDS 11:16
PROVIDERS: PCP Internal Medicine; Visit Provider Internal Medicine
DX: E78.5 Hyperlipidemia, unspecified (principal); I10 Essential (primary) hypertension; D64.9 Anemia, unspecified
CPT/HCPCS: 36415; 80053; 80061; 85025

== ENCOUNTER → 2024-04-17 10:12 | Outpatient (BNVA) | payer MEDICARE, SELFPAY | PROVIDERS: PCP Internal Medicine; Visit Provider Internal Medicine ==

== ENCOUNTER 2024-04-23 12:06 | Outpatient (REF) | payer MEDICARE, SELFPAY | END 2024-04-23 12:07 | disposition home or self-care (01) | LOC: HO.MAMMO 12:06 | PROVIDERS: PCP Internal Medicine; Visit Provider Internal Medicine | DX: Z13.89 Encounter for screening for other disorder (principal) ==

== ENCOUNTER 2024-10-13 10:15 | Outpatient (REF) | payer MEDICARE, SELFPAY ==
[2024-10-13 13:07] LABS: MANUAL DIFF FLAG NO
[2024-10-13 13:15] LABS: Basophils Percent Auto 0.5 % (0-2); Eosinophils Absolute Auto 0.4 X10*3/uL (0.0-0.4); Eosinophils Percent Auto 5.9 % (0-4); Hematocrit 37.4 % (37.0-47.0); Hemoglobin 11.8 g/dl (12.0-16.0); Imm Gran Abs Auto 0.04 X10*3/uL (0.00-0.03); Imm Gran Pct Auto 0.7 % (0.0-0.4); Lymphocytes Percent Auto 16.9 % (20-40); Mean Corpuscular HGB Conc 31.6 g/dl (31.0-35.0); Mean Corpuscular Hemoglobin 29.6 pg (27.0-33.0); Mean Platelet Volume 11.9 fL (9.4-12.3); Monocytes Absolute Auto 0.9 X10*3/uL (0.1-1.2); Monocytes Percent Auto 14.7 % (2-11); Neutrophils Absolute Auto 3.6 x10*3/uL (2.0-8.3); Neutrophils Percent Auto 61.3 % (45-73); Platelet Count 214 X10*3/uL (160-400); Red Blood Count 3.98 X10*6/uL (4.20-5.50); Red Cell Distribution Width 14.7 % (11.0-16.0); White Blood Count 5.9 X10*3/uL (4.8-10.8)
[2024-10-13 13:48] LABS: Alanine Aminotransferase 15 U/L (0-31); Albumin Level 4.5 g/dL (3.5-5.0); Alkaline Phosphatase 71 U/L (39-117); Anion Gap 14 (12-20); Aspartate Amino Transferase 34 U/L (5-31); Bilirubin Total 0.7 mg/dL (0.0-1.0); Blood Urea Nitrogen 17 mg/dL (9-16); Calcium 10.2 mg/dL (8.4-10.2); Carbon Dioxide 25 mmol/L (22-29); Chloride 109 mmol/L (96-108); Cholesterol 188 mg/dL (<200); Estimated Glomerular Filt Rate > 60; Glucose Fasting 91 mg/dL (60-99); HDL Cholesterol 79 mg/dL (>40); LDL Cholesterol Calculated 94 mg/dL (<100); Potassium 4.3 mmol/L (3.3-5.1); Sodium 144 mmol/L (135-145); Total Protein 7.6 g/dL (6.5-8.0); Triglycerides 76 mg/dL (<150)
[2024-10-13 14:03] LABS: TSH reflex Free T4 0.52 uIU/mL (0.32-4.0)
== END 2024-10-13 10:16 | disposition home or self-care (01) ==
LOC: HO.HMGCLDS 10:15
PROVIDERS: PCP Internal Medicine; Visit Provider Internal Medicine
DX: M06.9 Rheumatoid arthritis, unspecified (principal); E78.5 Hyperlipidemia, unspecified; E55.9 Vitamin D deficiency, unspecified; I10 Essential (primary) hypertension
CPT/HCPCS: 36415; 80053; 80061; 84443; 85025

== ENCOUNTER 2024-10-23 10:59 | Outpatient (AMB) | payer MEDICARE, SELFPAY ==
--- NOTE | 2024-10-23 11:44 | MHC.PC.OV ---
Vital Signs 10/23/24 11:46 Height 5 ft 1 in Weight 139 lb BMI 26.3 BP 150/82 H Blood Pressure Location Lt brachial Position Sitting Respiration 24 H Pulse 90 Pulse Source Pulse Oximeter Temp 98.3 F Temp Source Oral Pulse Oximetry (%) 93 Oxygen Delivery Method Room Air Intake Visit Reasons: 6 months f/up Intake Note: Pt is her today for her 6mo. f/u Allergies No Known Allergies Allergy (Verified 10/23/24 11:45) Medication List - Last Reconciled 10/23/24 by Sandra Phillips MD amlodipine 5 mg PO DAILY calcium carbonate mg PO cholecalciferol (vitamin D3) 25 mcg PO DAILY folic acid 1 mg PO DAILY leflunomide 20 mg PO DAILY methotrexate sodium mg PO metoprolol succinate ER 50 mg PO DAILY pravastatin 10 mg PO DAILY tofacitinib 5 mg PO BID triamcinolone acetonide 0.1% 1 appl topical DAILY Tobacco use date assessed: 10/23/24 Fall risk assessment: No Falls in past year Last assessed Fall Risk: 10/23/24 Dental Screening Dental Screen Date: 10/23/24 Did you have a dental visit in the last 12 months?: Yes Did you have a dental problem in the last 6 months where you did not have access to dental care?: No Was dental information given to patient?: Patient has dentist HPI 6 months f/up HPI Details Pt presents for f/u HTN, hyperlipid, RA established with rheumatology. Patient has been under increased stress due to family and reports worsening of arthralgia. [facility] Medical History Bilateral cataracts Anemia Cataract Vitamin D deficiency History of mammogram Hyperlipidemia Rheumatoid arthritis HTN (hypertension) Surgical History Hx of surgical procedure (12/13/23) H/O colonoscopy Family History Mother Hypertension Heart attack Father No problems noted. Social History Housing: House Patient Tobacco Use Status: Never used Tobacco e-Cigarette/Vaping Use: Never Used service: No Current occupational status: retired Cognitive needs: No Hearing needs: No Vision needs: Yes Questionnaire Thrive Questionnaire Date Thrive assessed: 06/21/23 RONALD-7 AMB Questionnaire RONALD-7 Date RONALD - 7 assessed: 06/21/23 Source: Developed by Drs. Zhang Morris, Savanna White, Ptio Mo and colleagues, with an educational facundo from [employer]. Review of Systems Const All systems reviewed & are unremarkable except as noted in HPI and below Eyes Reports no additional complaints ENT Reports no additional complaints Card Reports no additional complaints Resp Reports no additional complaints GI Reports no additional complaints Physical exam (Primary Care) Vital Signs: Last Vital Signs Temp 98.3 F 10/23/24 11:46 Pulse 90 10/23/24 11:46 Resp 24 H 10/23/24 11:46 BP 150/82 H 10/23/24 11:46 Pulse Ox 93 10/23/24 11:46 Oxygen Delivery Method Room Air 10/23/24 11:46 BMI result Body Mass Index 26.3 Tobacco/Smoking Status: Tobacco use Status Tobacco use date assessed 10/23/24 10/23/24 11:45 Patient Tobacco Use Status Never used Tobacco 10/23/24 11:45 e-Cigarette/Vaping Use Never Used 10/23/24 11:45 Thrive Assessment: Date of Thrive Assessment Date Thrive assessed 06/21/23 10/23/24 11:45 Const General: no acute distress HENMT Head: Yes normal to inspection Eyes General: appearance normal, both eyes and all related structures Neck Neck: Yes supple Resp Effort & Inspection: normal respiratory effort Auscultation: clear to auscultation bilaterally Cardio Rhythm: regular rhythm Heart sounds: S1 normal heart sound present and S2 normal heart sound present GI Inspection: Yes normal to inspection Coding Level of Care Code Est Pt Level 4 (81849) Diagnoses Rheumatoid arthritis M06.9 Hyperlipidemia E78.5 HTN (hypertension) I10 Assessment & Plan Assessment & Plan (1) Rheumatoid arthritis: Comment: f/u with industrial education instructor Dr. Howell Code(s): M06.9 - Rheumatoid arthritis, unspecified Category: Medical Plan: Continue current medications follow-up with Rheumatology (2) Hyperlipidemia: Code(s): E78.5 - Hyperlipidemia, unspecified Category: Medical Plan: Continue statin (3) HTN (hypertension): Code(s): I10 - Essential (primary) hypertension Category: Medical Plan: Increase amlodipine to 7.5 mg continue metoprolol follow-up in 1 month Medications: New amlodipine take with Amlodipine 5 mg 2.5 mg PO DAILY 90 tabs 0RF omeprazole 20 mg PO DAILY 30 caps 1RF
[2024-10-23 11:46] VITALS: BP 150/82; PULSE 90; RESP 24; TEMP 36.8; O2SAT 93; BMI 26.3
== END 2024-10-23 12:26 | disposition home or self-care (01) ==
LOC: HO.HMCC 10:59
PROVIDERS: PCP Internal Medicine; Visit Provider Internal Medicine
DX: M06.9 Rheumatoid arthritis, unspecified (principal); E78.5 Hyperlipidemia, unspecified; I10 Essential (primary) hypertension

== ENCOUNTER → 2024-10-23 10:59 | Outpatient (BNVA) | payer MEDICARE, SELFPAY | PROVIDERS: PCP Internal Medicine; Visit Provider Internal Medicine | DX: I10 Essential (primary) hypertension (principal); E78.5 Hyperlipidemia, unspecified; M06.9 Rheumatoid arthritis, unspecified; Z79.899 Other long term (current) drug therapy | CPT/HCPCS: 99212 ==

== ENCOUNTER 2024-11-24 11:14 | Outpatient (AMB) | payer MEDICARE, SELFPAY ==
[2024-11-24 11:22] VITALS: BP 128/78; PULSE 80; RESP 18; TEMP 36.8; O2SAT 95; BMI 25.9
--- NOTE | 2024-11-24 11:22 | MHC.PC.OV ---
Vital Signs 11/24/24 11:22 Height 5 ft 1 in Weight 137 lb BMI 25.9 BP 128/78 Blood Pressure Location Lt brachial Position Sitting Respiration 18 Pulse 80 Pulse Source Pulse Oximeter Temp 98.2 F Temp Source Oral Pulse Oximetry (%) 95 Oxygen Delivery Method Room Air Intake Visit Reasons: 1 month f/up Intake Note: Pt is here today for 1 month follow up visit on HTN. Allergies No Known Allergies Allergy (Verified 11/24/24 11:22) Medication List - Last Reconciled 11/24/24 by Sandra Phillips MD amlodipine 5 mg PO DAILY amlodipine 2.5 mg PO DAILY calcium carbonate mg PO cholecalciferol (vitamin D3) 25 mcg PO DAILY folic acid 1 mg PO DAILY leflunomide 20 mg PO DAILY methotrexate sodium mg PO metoprolol succinate ER 50 mg PO DAILY omeprazole 20 mg PO DAILY pravastatin 10 mg PO DAILY tofacitinib 5 mg PO BID triamcinolone acetonide 0.1% 1 appl topical DAILY Tobacco use date assessed: 11/24/24 Fall risk assessment: No Falls in past year Last assessed Fall Risk: 11/24/24 Dental Screening Dental Screen Date: 10/23/24 HPI 1 month f/up HPI Details Patient presents for the follow-up of hypertension hyperlipidemia stable on current medications. GERD symptoms resolved on omeprazole PFSH Medical History Bilateral cataracts Anemia Cataract Vitamin D deficiency History of mammogram Hyperlipidemia Rheumatoid arthritis HTN (hypertension) Surgical History Hx of surgical procedure (12/13/23) H/O colonoscopy Family History Mother Hypertension Heart attack Father No problems noted. Social History Housing: House Patient Tobacco Use Status: Never used Tobacco e-Cigarette/Vaping Use: Never Used service: No Current occupational status: retired Cognitive needs: No Hearing needs: No Vision needs: Yes Questionnaire PHQ-9 Over the last 2 weeks, how often have you been bothered by any of the following problems? 1. Little interest or pleasure in doing things: not at all 2. Feeling down, depressed, or hopeless: not at all 3. Trouble falling or staying asleep, or sleeping too much: not at all 4. Feeling tired or having little energy: not at all 5. Poor appetite or overeating: not at all 6. Feeling bad about yourself - or that you are a failure or have let yourself or your family down: not at all 7. Trouble concentrating on things, such as reading the newspaper or watching television: several days 8. Moving or speaking so slowly that other people could have noticed. Or the opposite - being so fidgety or restless that you have been moving around a lot more than usual: not at all 9. Thoughts that you would be better off or of hurting yourself in some way: not at all Total score: 1 Depression Screening Interpretation: Negative Depression Screening Done: Yes 50046 - PHQ-9 Billing: Yes Source: Developed by Drs. Zhang Morris, Savanna White, Pito Mo and colleagues, with an educational facundo from [employer]. Thrive Questionnaire Date Thrive assessed: 11/24/24 I am a: Patient What is your living situation today?: I have a steady place to live Within the past 12 months, did the food you bought not last and you didn't have the money to get more?: Never true Within the past 12 months, did you worry whether your food would run out before you got money to buy more?: Never true Do you have trouble paying for medicines?: No Do you have trouble getting transportation to medical appointments?: No Do you have trouble paying your heating and electricity bill?: No Do you have trouble taking care of your child, family member or friend?: No Do you have trouble with day-to-day activities such as bathing, preparing meals, shopping, managing finances, etc.?: No Are you currently unemployed and looking for a job?: No Are you interested in more education?: No Please select the resources that you would like help with: None THRIVE Score: 0 AUDIT C Alcohol Use Questionnaire (AUDIT-C) 1. How often do you have a drink containing alcohol?: Never 3. How often do you have six or more drinks on one occasion?: Never Total Score: 0 RONALD-7 AMB Questionnaire RONALD-7 Date RONALD - 7 assessed: 11/24/24 Feeling nervous, anxious, or on edge: 0 = Not at all Not being able to stop or control worryin = Not at all Worrying too much about different things: 0 = Not at all Trouble relaxin = Not at all Being so restless that it is hard to sit still: 0 = Not at all Becoming easily annoyed or irritable: 0 = Not at all Feeling afraid as if something awful might happen: 0 = Not at all Total RONALD-7 score (0-4 normal; 5-9 mild; 10-14 moderate; 15-21 severe): 0 Source: Developed by Drs. Zhang Morris, Savanna White, Pito Mo and colleagues, with an educational facundo from [employer]. RONALD-7 Assessment Billing RONALD-7 Assessment Tool: RONALD-7 Assessment 50415 Review of Systems Const All systems reviewed & are unremarkable except as noted in HPI and below ENT Reports no additional complaints Card Reports no additional complaints Resp Reports no additional complaints GI Reports no additional complaints Reports no additional complaints Physical exam (Primary Care) Vital Signs: Last Vital Signs Temp 98.2 F 11/24/24 11:22 Pulse 80 11/24/24 11:22 Resp 18 11/24/24 11:22 BP 128/78 11/24/24 11:22 Pulse Ox 95 11/24/24 11:22 Oxygen Delivery Method Room Air 11/24/24 11:22 BMI result Body Mass Index 25.9 Tobacco/Smoking Status: Tobacco use Status Tobacco use date assessed 11/24/24 11/24/24 11:24 Patient Tobacco Use Status Never used Tobacco 11/24/24 11:24 e-Cigarette/Vaping Use Never Used 11/24/24 11:23 PHQ-9: PHQ-9 Score PHQ-9: Total score 1 11/24/24 11:51 Depression Screening Interpretation: Negative Thrive Assessment: Date of Thrive Assessment Date Thrive assessed 11/24/24 11/24/24 11:51 Const General: no acute distress HENMT Head: Yes normal to inspection Throat: Yes posterior oropharynx normal Neck Neck: Yes supple Resp Effort & Inspection: normal respiratory effort Auscultation: clear to auscultation bilaterally Cardio Rhythm: regular rhythm Heart sounds: S1 normal heart sound present and S2 normal heart sound present GI Inspection: Yes normal to inspection Palpation (GI): Soft to palpation Percussion: Yes normal to percussion Auscultation: normal bowel sounds Coding Level of Care Code Est Pt Level 4 (33071) Diagnoses HTN (hypertension) I10 Hyperlipidemia E78.5 Vitamin D deficiency E55.9 Rheumatoid arthritis M06.9 Additional Codes RONALD-7 Assessment Billing - RONALD-7 Assessment Tool: RONALD-7 Assessment 91287 ([id number]) PHQ-9 - 89328 - PHQ-9 Billing: Yes ([id number]) Assessment & Plan Assessment & Plan (1) HTN (hypertension): Code(s): I10 - Essential (primary) hypertension Category: Medical Plan: cont meds (2) Hyperlipidemia: Code(s): E78.5 - Hyperlipidemia, unspecified Category: Medical Plan: cont statin (3) Vitamin D deficiency: Code(s): E55.9 - Vitamin D deficiency, unspecified Category: Medical Plan: cont vit D (4) Rheumatoid arthritis: Comment: f/u with security control room officer Dr. Howell Code(s): M06.9 - Rheumatoid arthritis, unspecified Category: Medical Plan: f/u rheumatology Orders: Orders Complete Blood Count Auto Diff 4 Months E55.9 - Vitamin D deficiency, unspecified, E78.5 - Hyperlipidemia, unspecified, I10 - Essential (primary) hypertension Lipid Panel 4 Months E55.9 - Vitamin D deficiency, unspecified, E78.5 - Hyperlipidemia, unspecified, I10 - Essential (primary) hypertension Vitamin D 25-OH Total 4 Months E55.9 - Vitamin D deficiency, unspecified, E78.5 - Hyperlipidemia, unspecified, I10 - Essential (primary) hypertension Comprehensive [place]. Panel Fast 4 Months E55.9 - Vitamin D deficiency, unspecified, E78.5 - Hyperlipidemia, unspecified, I10 - Essential (primary) hypertension Medications: Refilled amlodipine 5 mg PO DAILY 90 tabs 3RF pravastatin 10 mg PO DAILY 90 tabs 3RF
== END 2024-11-24 12:18 | disposition home or self-care (01) ==
LOC: HO.HMCC 11:15
PROVIDERS: PCP Internal Medicine; Visit Provider Internal Medicine
DX: I10 Essential (primary) hypertension (principal); E78.5 Hyperlipidemia, unspecified; E55.9 Vitamin D deficiency, unspecified; M06.9 Rheumatoid arthritis, unspecified

== ENCOUNTER → 2024-11-24 11:14 | Outpatient (BNVA) | payer MEDICARE, SELFPAY | PROVIDERS: PCP Internal Medicine; Visit Provider Internal Medicine | DX: I10 Essential (primary) hypertension (principal); E78.5 Hyperlipidemia, unspecified; K21.9 Gastro-esophageal reflux disease without esophagitis; E55.9 Vitamin D deficiency, unspecified; M06.9 Rheumatoid arthritis, unspecified | CPT/HCPCS: 96127; 99212 ==

== ENCOUNTER 2025-04-13 11:01 | Outpatient (REF) | payer MEDICARE, SELFPAY ==
[2025-04-13 12:51] LABS: MANUAL DIFF FLAG NO
[2025-04-13 13:07] LABS: Hematocrit 37.1 % (37.0-47.0); Hemoglobin 11.4 g/dl (12.0-16.0); Imm Gran Abs Auto 0.05 X10*3/uL (0.00-0.03); Imm Gran Pct Auto 0.7 % (0.0-0.4); Lymphocytes Absolute Auto 1.2 X10*3/uL (1.2-4.9); Mean Corpuscular HGB Conc 30.7 g/dl (31.0-35.0); Mean Corpuscular Hemoglobin 29.3 pg (27.0-33.0); Mean Corpuscular Volume 95.4 fL (80.0-98.0); NRBC Abs Auto 0.000 X10*3/uL (0.0-0.012); NRBC Pct Auto 0.0 /100WBC (0.0-0.2); Platelet Count 233 X10*3/uL (160-400); Red Blood Count 3.89 X10*6/uL (4.20-5.50); White Blood Count 7.7 X10*3/uL (4.8-10.8)
--- OUTSIDE RECORDS SUMMARY | 2025-04-13 13:13 | XMS_ITS | Clinical Summary ---
Author Organization [facility] Address [address] [id number] Phone Care Team Providers Care Cell Coverer Name Role Phone Sandra Phillips MD Primary Care Provider [phone] Allergies No known active allergies Medications amLODIPine (NORVASC) 5 MG tablet Take 1 tablet by mouth every morning. 01/04/2023 Active folic acid (FOLVITE) 1 MG tablet Take 1 tablet by mouth every morning. 01/04/2023 Active leflunomide (ARAVA) 20 MG tablet Take 1 tablet by mouth every morning. 10/10/2022 Active methotrexate 2.5 MG Oral tablet TAKE 3 TABLETS BY MOUTH 1 TIME WEEKLY 12/07/2022 Active metoprolol succinate (TOPROL-XL) 25 MG 24 hr tablet Take 1 tablet by mouth every morning. 01/04/2023 Active pravastatin (PRAVACHOL) 10 MG tablet Take 1 tablet by mouth every morning. 01/04/2023 Active XELJANZ 5 mg Tab tablet 12/22/2022 Active Social History Tobacco Use Types Packs/Day Years Used Date Smoking Tobacco: Never Assessed Education Answer Date Recorded Are you interested in more education? Not on vanessa e 01/07/2023 Are you concerned about learning? Not on file 01/07/2023 No 01/07/2023 No 01/07/2023 Digital Access Answer Date Recorded No 01/07/2023 No 01/07/2023 Reliable internet access at home? Not on file 01/07/2023 Device with a working camera? Not on file Comments Unknown Sex and Gender Information Value Date Recorded Sex Assigned at Not on file Legal Sex Female 12:25 PM EDT Gender Identity Not on file Sexual Orientation Not on file Last Filed Vital Signs Vital Sign Reading Time Taken Comments Blood Pressure 144/80 01/07/2023 1:05 PM EDT Pulse 101 01/07/2023 1:05 PM EDT Temperature - - Respiratory Rate - - Oxygen Saturation 95% 01/07/2023 1:05 PM EDT Inhaled Oxygen Concentration - - Weight 68 kg (150 lb) 01/07/2023 1:05 PM EDT Height 154.9 cm (5' 1 ) 01/07/2023 1:05 PM EDT Body Mass Index 28.34 01/07/2023 1:05 PM EDT Plan of Treatment Health Maintenance Due Date Last Done Comments Adult Td,Tdap Booster 1948 LIPID PANEL 1948 DEPRESSION SCREENING 1960 SMOKING Hx and SMOKELESS TOBACCO SCREENING 1961 HEPATITIS C SCREENING 1966 ZOSTER VACCINES (1 of 2) 09/27/1967 OSTEOPOROSIS SCREENING INITIAL (ONE-TIME) 2013 PNEUMOCOCCAL VACCINES (50+ years) (2 of 2 - PCV) 05/15/2014 05/15/2013 COVID-19 VACCINE (3 - Pfizer risk series) 10/13/2020 09/15/2020, 08/25/2020 RSV VACCINE (1 - 1-dose 75+ series) 09/27/2023 INFLUENZA VACCINE (#1) 2025 2, 04/20/2021, 02/18/2020, Additional history exists HEPATITIS A VACCINES Aged Out No long er eligible based on patient's age to complete this topic HIB VACCINES Aged Out No longer eligi ble based on patient's age to complete this topic IPV VACCINES Aged Out No longer eligi ble based on patient's age to complete this topic MENINGOCOCCAL VACCINES (ACWY) Aged Out No longer eligible based on patient's age to complete this topic MENINGOCOCCAL VACCINES (B) Aged Out N o longer eligible based on patient's age to complete this topic Medical Devices Not on file Insurance [facility] MEDICARE REPLACEMENT MEDICARE REPLACEMENT MEDICARE REPLACEMENT MEDICARE REPLACEMENT [employer] [id number] [place] [id number] [place] [address] [place] [phone] Care Teams Cell Coverer Relationship Specialty Start Date End Date Sandra Phillips MD 1963 [place], [place] [id number] PCP - General Internal Medicine 01/07/23 Additional Source Comments The information contained in this document represents components of the legal health record. It is not the complete legal health record.[facility]
[2025-04-13 13:28] LABS: Alanine Aminotransferase 14 U/L (0-31); Albumin Level 4.7 g/dL (3.5-5.0); Alkaline Phosphatase 89 U/L (39-117); Anion Gap 14 (12-20); Aspartate Amino Transferase 32 U/L (5-31); Blood Urea Nitrogen 18 mg/dL (9-16); Calcium 10.5 mg/dL (8.4-10.2); Carbon Dioxide 24 mmol/L (22-29); Chloride 108 mmol/L (96-108); Cholesterol 168 mg/dL (<200); Estimated Glomerular Filt Rate > 60; HDL Cholesterol 68 mg/dL (>40); Potassium 4.2 mmol/L (3.3-5.1); Sodium 142 mmol/L (135-145); Total Protein 7.8 g/dL (6.5-8.0); Triglycerides 75 mg/dL (<150)
== END 2025-04-13 11:02 | disposition home or self-care (01) ==
LOC: HO.HMGCLDS 11:01
PROVIDERS: PCP Internal Medicine; Visit Provider Internal Medicine
DX: I10 Essential (primary) hypertension (principal); E78.5 Hyperlipidemia, unspecified; E55.9 Vitamin D deficiency, unspecified
CPT/HCPCS: 36415; 80053; 80061; 82306; 85025

== ENCOUNTER 2025-04-22 11:59 | Outpatient (AMB) | payer MEDICARE, SELFPAY ==
--- NOTE | 2025-04-22 12:11 | A.OFFPC_ITS ---
Vital Signs 04/22/25 12:12 Height 5 ft 1 in Weight 135 lb BMI 25.5 BP 150/88 H Blood Pressure Location Rt brachial Position Sitting Respiration 16 Pulse 90 Pulse Source Pulse Oximeter Pulse Oximetry (%) 95 Oxygen Delivery Method Room Air Intake Visit Reasons: 4m f/u Intellectual Property Manager Required: No Accompanied by: Self / Same As Patient Allergies No Known Allergies Allergy (Verified 04/22/25 12:15) Medication List - Last Reconciled 04/22/25 by Sandra Phillips MD amlodipine 2.5 mg PO DAILY amlodipine 5 mg PO DAILY calcium carbonate mg PO cholecalciferol (vitamin D3) 25 mcg PO DAILY folic acid 1 mg PO DAILY leflunomide 20 mg PO DAILY metoprolol succinate ER 50 mg PO DAILY omeprazole 20 mg PO DAILY pravastatin 10 mg PO DAILY tofacitinib 5 mg PO BID triamcinolone acetonide 0.1% 1 appl topical DAILY Tobacco use date assessed: 04/22/25 Fall risk assessment: No Falls in past year Last assessed Fall Risk: 04/22/25 Dental Screening Dental Screen Date: 04/22/25 Did you have a dental visit in the last 12 months?: Yes Did you have a dental problem in the last 6 months where you did not have access to dental care?: No Was dental information given to patient?: Patient has dentist HPI 4m f/u HPI Details Pt presents for HTN, hyperlipid, RA. Patient reports increasing joint achiness and stiffness in both hands and is established with storage specialist. [facility] Medical History Bilateral cataracts Anemia Cataract Vitamin D deficiency History of mammogram Hyperlipidemia Rheumatoid arthritis HTN (hypertension) Surgical History Hx of surgical procedure (12/13/23) H/O colonoscopy Family History Mother Hypertension Heart attack Father No problems noted. Social History Housing: House Patient Tobacco Use Status: Never used Tobacco e-Cigarette/Vaping Use: Never Used service: No Current occupational status: retired Cognitive needs: No Hearing needs: No Vision needs: Yes Questionnaire PHQ-9 Over the last 2 weeks, how often have you been bothered by any of the following problems? 1. Little interest or pleasure in doing things: not at all 2. Feeling down, depressed, or hopeless: not at all 3. Trouble falling or staying asleep, or sleeping too much: not at all 4. Feeling tired or having little energy: not at all 5. Poor appetite or overeating: not at all 6. Feeling bad about yourself - or that you are a failure or have let yourself or your family down: not at all 7. Trouble concentrating on things, such as reading the newspaper or watching television: not at all 8. Moving or speaking so slowly that other people could have noticed. Or the opposite - being so fidgety or restless that you have been moving around a lot more than usual: not at all 9. Thoughts that you would be better off or of hurting yourself in some way: not at all Total score: 0 Depression Screening Interpretation: Negative Depression Screening Done: Yes 32814 - PHQ-9 Billing: Yes Source: Developed by Drs. Zhang Morris, Savanna White, Pito Mo and colleagues, with an educational facundo from [employer]. Thrive Questionnaire Date Thrive assessed: 11/24/24 RONALD-7 AMB Questionnaire RONALD-7 Date RONALD - 7 assessed: 04/22/25 Feeling nervous, anxious, or on edge: 0 = Not at all Not being able to stop or control worryin = Not at all Worrying too much about different things: 0 = Not at all Trouble relaxin = Not at all Being so restless that it is hard to sit still: 0 = Not at all Becoming easily annoyed or irritable: 0 = Not at all Feeling afraid as if something awful might happen: 0 = Not at all Total RONALD-7 score (0-4 normal; 5-9 mild; 10-14 moderate; 15-21 severe): 0 Source: Developed by Drs. Zhang Morris, Savanna White, Pito Mo and colleagues, with an educational facundo from [employer]. RONALD-7 Assessment Billing RONALD-7 Assessment Tool: RONALD-7 Assessment 78795 Review of Systems Const All systems reviewed & are unremarkable except as noted in HPI and below ENT Reports no additional complaints Card Reports no additional complaints Resp Reports no additional complaints GI Reports no additional complaints Reports no additional complaints Physical exam (Primary Care) Vital Signs: Last Vital Signs Pulse 90 04/22/25 12:12 Resp 16 04/22/25 12:12 BP 150/88 H 04/22/25 12:12 Pulse Ox 95 04/22/25 12:12 Oxygen Delivery Method Room Air 04/22/25 12:12 BMI result Body Mass Index 25.5 Tobacco/Smoking Status: Tobacco use Status Tobacco use date assessed 04/22/25 04/22/25 12:16 Patient Tobacco Use Status Never used Tobacco 04/22/25 12:16 e-Cigarette/Vaping Use Never Used 04/22/25 12:16 PHQ-9: PHQ-9 Score PHQ-9: Total score 0 04/22/25 13:00 Depression Screening Interpretation: Negative Thrive Assessment: Date of Thrive Assessment Date Thrive assessed 11/24/24 04/22/25 12:16 Const General: no acute distress HENMT Head: Yes normal to inspection Eyes General: appearance normal, both eyes and all related structures Neck Neck: Yes supple Resp Effort & Inspection: normal respiratory effort Auscultation: clear to auscultation bilaterally Cardio Rhythm: regular rhythm Heart sounds: S1 normal heart sound present and S2 normal heart sound present GI Inspection: Yes normal to inspection Palpation (GI): Soft to palpation Coding Level of Care Code Est Pt Level 4 (12607) Diagnoses HTN (hypertension) I10 Hyperlipidemia E78.5 Rheumatoid arthritis M06.9 Additional Codes RONALD-7 Assessment Billing - RONALD-7 Assessment Tool: RONALD-7 Assessment 95525 ([id number]) PHQ-9 - 63306 - PHQ-9 Billing: Yes ([id number]) Assessment & Plan Assessment & Plan (1) HTN (hypertension): Code(s): I10 - Essential (primary) hypertension Category: Medical Plan: Continue 7.5 mg of amlodipine increase metoprolol to 100 mg daily. Low-sodium diet regular physical activity stress management discussed with the patient follow-up in 1 month (2) Hyperlipidemia: Code(s): E78.5 - Hyperlipidemia, unspecified Category: Medical Plan: Continue statin (3) Rheumatoid arthritis: Comment: f/u with storage specialist Dr. Howell Code(s): M06.9 - Rheumatoid arthritis, unspecified Category: Medical Plan: Follow-up with rheumatology Medications: New metoprolol succinate ER 100 mg PO DAILY 90 tabs 1RF Changed From calcium carbonate PO To calcium carbonate 500 mg PO .qd 90 tabs 3RF Refilled omeprazole 20 mg PO DAILY 90 caps 3RF Discontinued metoprolol succinate ER Discontinued Reason: Doctor's Order 50 mg PO DAILY 90 tabs 3RF
[2025-04-22 12:12] VITALS: BP 150/88; PULSE 90; RESP 16; O2SAT 95; BMI 25.5
== END 2025-04-22 13:12 | disposition home or self-care (01) ==
LOC: HO.HMCC 11:59
PROVIDERS: PCP Internal Medicine; Visit Provider Internal Medicine
DX: I10 Essential (primary) hypertension (principal); E78.5 Hyperlipidemia, unspecified; M06.9 Rheumatoid arthritis, unspecified

== ENCOUNTER → 2025-04-22 11:59 | Outpatient (BNVA) | payer MEDICARE, SELFPAY | PROVIDERS: PCP Internal Medicine; Visit Provider Internal Medicine | DX: I10 Essential (primary) hypertension (principal); E78.5 Hyperlipidemia, unspecified; M06.9 Rheumatoid arthritis, unspecified; Z13.31 Encounter for screening for depression; Z13.39 Encounter for screening examination for other mental health and behavioral disorders; Z79.899 Other long term (current) drug therapy | CPT/HCPCS: 96127; 99212 ==

== ENCOUNTER 2025-05-19 12:15 | Outpatient (AMB) | payer MEDICARE, SELFPAY ==
--- NOTE | 2025-05-19 12:23 | MHC.PC.OV ---
Vital Signs 05/19/25 12:24 Height 5 ft 1 in Weight 137 lb BMI 25.9 BP 128/80 Blood Pressure Location Lt brachial Position Sitting Respiration 17 Pulse 78 Pulse Source Pulse Oximeter Temp 98.1 F Temp Source Oral Pulse Oximetry (%) 95 Oxygen Delivery Method Room Air Intake Visit Reasons: 1 mo follow up Intake Note: Pt is here today for 1 month follow up visit on BP. Allergies No Known Allergies Allergy (Verified 05/19/25 12:26) Medication List - Last Reconciled 05/19/25 by Sandra Phillips MD amlodipine 2.5 mg PO DAILY amlodipine 5 mg PO DAILY calcium carbonate 500 mg PO .qd cholecalciferol (vitamin D3) 25 mcg PO DAILY folic acid 1 mg PO DAILY leflunomide 20 mg PO DAILY metoprolol succinate ER 100 mg PO DAILY omeprazole 20 mg PO DAILY pravastatin 10 mg PO DAILY tofacitinib 5 mg PO BID triamcinolone acetonide 0.1% 1 appl topical DAILY Tobacco use date assessed: 04/22/25 Fall risk assessment: No Falls in past year Last assessed Fall Risk: 05/19/25 Dental Screening Dental Screen Date: 04/22/25 HPI 1 mo follow up HPI Details PATIENT PRESENTS FOR THE FOLLOW-UP OF HYPERTENSION HYPERLIPIDEMIA STABLE ON CURRENT MEDICATIONS.. She is established with head waiter/waitress banquet for rheumatoid arthritis controlled on current medications. [facility] Medical History Bilateral cataracts Anemia Cataract Vitamin D deficiency History of mammogram Hyperlipidemia Rheumatoid arthritis HTN (hypertension) Surgical History Hx of surgical procedure (12/13/23) H/O colonoscopy Family History Mother Hypertension Heart attack Father No problems noted. Social History Housing: House Patient Tobacco Use Status: Never used Tobacco e-Cigarette/Vaping Use: Never Used service: No Current occupational status: retired Cognitive needs: No Hearing needs: No Vision needs: Yes Questionnaire Thrive Questionnaire Date Thrive assessed: 11/24/24 RONALD-7 AMB Questionnaire RONALD-7 Date RONALD - 7 assessed: 04/22/25 Source: Developed by Drs. Zhang Morris, Savanna White, Pito Mo and colleagues, with an educational facundo from [employer]. Review of Systems Const All systems reviewed & are unremarkable except as noted in HPI and below ENT Reports no additional complaints Card Reports no additional complaints Resp Reports no additional complaints GI Reports no additional complaints Reports no additional complaints Physical exam (Primary Care) Vital Signs: Last Vital Signs Temp 98.1 F 05/19/25 12:24 Pulse 78 05/19/25 12:24 Resp 17 05/19/25 12:24 BP 128/80 05/19/25 12:24 Pulse Ox 95 05/19/25 12:24 Oxygen Delivery Method Room Air 05/19/25 12:24 BMI result Body Mass Index 25.9 Tobacco/Smoking Status: Tobacco use Status Tobacco use date assessed 04/22/25 05/19/25 12:31 Patient Tobacco Use Status Never used Tobacco 05/19/25 12:31 e-Cigarette/Vaping Use Never Used 05/19/25 12:31 Thrive Assessment: Date of Thrive Assessment Date Thrive assessed 11/24/24 05/19/25 12:31 Const General: no acute distress HENMT Head: Yes normal to inspection Mouth: Normal oral and palatal mucosa present Resp Effort & Inspection: normal respiratory effort Auscultation: clear to auscultation bilaterally Cardio Rhythm: regular rhythm Heart sounds: S1 normal heart sound present and S2 normal heart sound present GI Inspection: Yes normal to inspection Palpation (GI): Soft to palpation Coding Level of Care Code Est Pt Level 4 (37347) Diagnoses HTN (hypertension) I10 Hyperlipidemia E78.5 Rheumatoid arthritis M06.9 Assessment & Plan Assessment & Plan (1) HTN (hypertension): Code(s): I10 - Essential (primary) hypertension Category: Medical Plan: Continue current medications, follow-up in 3 months (2) Hyperlipidemia: Code(s): E78.5 - Hyperlipidemia, unspecified Category: Medical Plan: Continue statin (3) Rheumatoid arthritis: Comment: f/u with head waiter/waitress banquet Dr. Howell Code(s): M06.9 - Rheumatoid arthritis, unspecified Category: Medical Plan: Continue current medications follow-up with rheumatology Orders: Orders Comprehensive [place]. Panel Fast 3 Months E78.5 - Hyperlipidemia, unspecified, I10 - Essential (primary) hypertension Complete Blood Count Auto Diff 3 Months E78.5 - Hyperlipidemia, unspecified, I10 - Essential (primary) hypertension
[2025-05-19 12:24] VITALS: BP 128/80; PULSE 78; RESP 17; TEMP 36.7; O2SAT 95; BMI 25.9
--- OUTSIDE RECORDS SUMMARY | 2025-05-19 16:11 | XMS_ITS | Clinical Summary ---
Author Organization [facility] Address [address] [id number] Phone Care Team Providers Care Slate Cutter Name Role Phone Sandra Phillips MD Primary Care Provider [phone] Allergies No known active allergies Medications amLODIPine [...] topic Medical Devices Not on file Insurance [facility] MEDICARE REPLACEMENT MEDICARE REPLACEMENT MEDICARE REPLACEMENT MEDICARE REPLACEMENT MEDICARE [place] [address] [place] [address] MEDICARE REPLACEMENT [employer] [id number] Care Teams Slate Cutter Relationship Specialty Start Date End Date Sandra Phillips MD 1963 [place] [address] PCP - General Internal Medicine 01/07/23 Additional Source Comments The information contained in this document represents components of the legal health record. It is not the complete legal health record.[facility]
== END 2025-05-19 13:02 | disposition home or self-care (01) ==
LOC: HO.HMCC 12:15
PROVIDERS: PCP Internal Medicine; Visit Provider Internal Medicine
DX: I10 Essential (primary) hypertension (principal); E78.5 Hyperlipidemia, unspecified; M06.9 Rheumatoid arthritis, unspecified

== ENCOUNTER → 2025-05-19 12:15 | Outpatient (BNVA) | payer MEDICARE, SELFPAY | PROVIDERS: PCP Internal Medicine; Visit Provider Internal Medicine | DX: I10 Essential (primary) hypertension (principal); E78.5 Hyperlipidemia, unspecified; M06.9 Rheumatoid arthritis, unspecified | CPT/HCPCS: 99212 ==